=== PATIENT | male | born 1970 | race Caucasian/White ===

== ENCOUNTER 2017-09-05 06:01 | Emergency (ER) | payer MEDICAID ==
[~2017-09-05] VITALS: Ht 170.2 cm; Wt 114.3 kg
[2017-09-05 06:02] VITALS: Ht 170.2 cm; Wt 114.3 kg
[2017-09-05 06:45] LABS: URINE BLOOD (Dip) POC Trace-intact (NEGATIVE)
[2017-09-05] MEDS ORDERED: HYDR-906 PO (07:03)
[2017-09-05] MEDS ORDERED: NAPR-260 PO (07:03)
--- NOTE | 2017-09-05 07:13 | ERD ---
ER Documentation Chief Complaint Chief Complaint back pin x 2 days, denies injury HPI 47-year-old male complaining of back pain 2 days. Patient states that the pain is around the thoracic region of the back is worse with movement. He denies traumatic injury. He denies numbness or tingling to his extremities. He is taking Advil and Tylenol with no alleviation of symptoms. He denies any abdominal pain. Denies chest pain or shortness of breath. Denies rashes. Medical history is hypertension. NKDA. Surgical history: Denies ROS All systems reviewed and are negative except as per history of present illness. Medications Home Meds Active Scripts Naproxen* (Naprosyn*) 500 Mg Tablet, 500 MG PO BID Y for PAIN AND/OR INFLAMMATION, #30 TAB Prov:NOA BALLARD PA-C 09/05/17 Hydrocodone/Acetaminophen ([place] 5-325 Tablet) 1 Each Tablet, 1 TAB PO Q6H Y for PAIN, #7 TAB Prov:NOA BALLARD PA-C 09/05/17 Allergies Allergies: Coded Allergies: No Known Allergy (Unverified , 08/01/14) PMhx/Soc Medical and Surgical Hx: pt denies Medical Hx, pt denies Surgical Hx History of Surgery: No Anesthesia Reaction: No Hx Neurological Disorder: No Hx Respiratory Disorders: No Hx Cardiac Disorders: No Hx Psychiatric Problems: No Hx Miscellaneous Medical Probl: No Hx Alcohol Use: Yes (OCCASSIONAL) Hx Substance Use: No Hx Tobacco Use: No Smoking Status: Never smoker Physical Exam Vitals Vital Signs Date Time Temp Pulse Resp B/P Pulse Ox O2 Delivery O2 Flow Rate FiO2 09/05/17 06:02 97.5 79 20 156/85 98 Physical Exam GENERAL: The patient is well-appearing, well-nourished, in no acute distress NECK: C-spine is soft and supple. There is no meningismus. There is no cervical lymphadenopathy. No JVD. No bruits. No goiter. CHEST: Clear to auscultation bilaterally. There are no rales, wheezes or rhonchi. HEART: Regular rate and rhythm. No murmurs, clicks, rubs or gallops. No S3 or S4. ABDOMEN:Soft, nontender and nondistended. Good bowel sounds. No rebound or guarding. No gross peritonitis. No gross organomegaly or masses. No Ayon sign or McBurney point tenderness. BACK: No midline or flank tenderness. SKIN: There is no apparent rash or petechiae. The skin is warm and dry. Results 24 hrs Laboratory Tests Test 09/05/17 06:45 Bedside Urine pH (LAB) 5.5 Bedside Urine Protein (LAB) Negative Bedside Urine Glucose (UA) Negative Bedside Urine Ketones (LAB) Negative Bedside Urine Blood Trace-intact Bedside Urine Nitrite (LAB) Negative Bedside Urine Leukocyte Esterase (L Negative Procedures/MDM MDM: 47-year-old male complaining of back pain. Patient's urine appears to be within normal limits. I have low suspicion for kidney disease patient does not have CVA tenderness on exam. I have low suspicion for discitis, epidural abscess, or cauda equina. Patient does not have midline tenderness on palpation. Patient's lower extremity exam is within normal limits I have low suspicion for neurodeficit. Patient will be discharged with pain medication. Patient is recommended to follow-up with PMD within 1-2 days for close evaluation. I have low suspicion for abdominal emergency including but not limited to AAA, bowel obstruction, appendicitis, choledocholithiasis, cholecystitis, cholangitis, or pancreatitis. Patient's abdominal exam was not concerning. I have low suspicion for pulmonary or cardiac abnormalities patient 's exam was within normal limits. Vital signs are stable. All questions answered at discharge Departure Diagnosis: Primary Impression: Back pain Condition: Stable Patient Instructions: Back Pain (Acute Or Chronic) Referrals: [facility] YOU HAVE RECEIVED A MEDICAL SCREENING EXAM AND THE RESULTS INDICATE THAT YOU DO NOT HAVE A CONDITION THAT REQUIRES URGENT TREATMENT IN THE EMERGENCY DEPARTMENT. FURTHER EVALUATION AND TREATMENT OF YOUR CONDITION CAN WAIT UNTIL YOU ARE SEEN IN YOUR DOCTORS OFFICE WITHIN THE NEXT 1-2 DAYS. IT IS YOUR RESPONSIBILITY TO MAKE AN APPOINTMENT FOR FOLOW-UP CARE. IF YOU HAVE A PRIMARY DOCTOR --you should call your primary doctor and schedule an appointment IF YOU DO NOT HAVE A PRIMARY DOCTOR YOU CAN CALL OUR PHYSICIAN REFERRAL HOTLINE AT IF YOU CAN NOT AFFORD TO SEE A PHYSICIAN YOU CAN CHOSE FROM THE FOLLOWING FORMERLY [facility] [address] [facility]. [facility] [address] [facility] [address] [facility] [address] [facility] [address] [facility]. [facility]. [address] Additional Instructions: FOLLOW UP WITH YOUR PRIMARY CARE PHYSICIAN TOMORROW.Return to this facility if you are not improving as expected. NOA BALLARD PA-C Sep 05, 2017 07:13
== END 2017-09-05 07:11 | disposition home or self-care (01) ==
LOC: FTE 06:01
DX: M54.6 Pain in thoracic spine (principal)
CPT/HCPCS: 81003; Z7502; 99283